=== PATIENT | male | born 1960 | race Caucasian/White ===

== ENCOUNTER 2023-06-05 09:13 | Emergency (ER) | payer OTHER ==
[~2023-06-05] VITALS: Ht 185.4 cm; Wt 95.3 kg
[2023-06-05 09:26] VITALS: BP 148/112; PULSE 62; RESP 18; TEMP 98; O2SAT 98
[2023-06-05] MEDS ORDERED: NACL 0.9% 1,000 ML IV ONE ×2 (09:50)
[2023-06-05 10:15] LABS: BLOOD GAS BASE EXCESS -1.9 mmol/L (-2.0-2.0); BLOOD GAS HCO3 20.9 mmol/L (22-26); BLOOD GAS PCO2 31.1 mmHg (35-45); BLOOD GAS PH 7.446 (7.35-7.45); BLOOD GAS PO2 83.2 mmHg (75-100)
[2023-06-05 10:16] LABS: BLOOD GAS O2 SAT% 96.7 % (92.0-98.5)
[2023-06-05 10:35] LABS: BASOPHILS % (AUTO) 0.2 % (0.0-2.0); EOSINOPHILS % (AUTO) 0.8 % (0.0-4.0); HEMATOCRIT 47.6 % (36-52); HEMOGLOBIN 16.2 g/dL (12.0-18.0); LYMPHOCYTES # (AUTO) 1.9 K/uL (2.0-11.5); LYMPHOCYTES % (AUTO) 34.3 % (20.5-51.1); MEAN CORPUSCULAR HEMOGLOBIN 30 pg (27-31); MEAN CORPUSCULAR HGB CONC 34 g/dL (33-37); MEAN CORPUSCULAR VOLUME 86.9 fL (80-94); MONOCYTES # (AUTO) 0.6 K/uL (0.8-1.0); MONOCYTES % (AUTO) 10.1 % (1.7-9.3); NEUTROPHILS # (AUTO) 3.1 K/uL (1.8-7.7); NEUTROPHILS % (AUTO) 54.6 % (42.2-75.2); PLATELET COUNT (AUTO) 204 K/uL (140-450); RED BLOOD CELL COUNT(AUTO) 5.48 MIL/uL (4.20-6.10); RED CELL DISTRIBUTION WIDTH 14.3 % (11.6-13.7); WHITE BLOOD COUNT (AUTO) 5.6 K/uL (4.8-10.8)
[2023-06-05 10:54] LABS: ALBUMIN 3.8 g/dL (3.4-5.0); ANION GAP 8.8 (8-16); CARBON DIOXIDE 29.6 mmol/L (21-32); CREATININE 1.2 mg/dL (0.6-1.3); POTASSIUM 4.4 mmol/L (3.5-5.1); TOTAL BILIRUBIN 0.6 mg/dL (0.0-1.0); TOTAL PROTEIN, SERUM 7.7 g/dL (6.4-8.2)
[2023-06-05 11:00] LABS: APPEARANCE,URINE CLEAR (CLEAR); BILIRUBIN,URINE NEGATIVE (NEGATIVE); BLOOD, URINE NEGATIVE (NEGATIVE); COLOR,URINE YELLOW (YELLOW); LEUKOCYTE ESTERASE ,URINE NEGATIVE (NEGATIVE); NITRITE, URINE NEGATIVE (NEGATIVE); PROTEIN,URINE NEGATIVE (NEGATIVE); UGLUCOSE NEGATIVE (NEGATIVE); UROBILINOGEN,URINE 0.2 EU/dL (0.2 - 1)
[2023-06-05 11:00] LABS: THYROID STIMULATING HORMONE 1.29 uIU/mL (0.34-3.74)
[2023-06-05 11:11] LABS: AMPHETAMINE, URINE NEGATIVE ng/ml (NEG <=1000); BARBITURATE, URINE NEGATIVE ng/ml (NEG <=200); BENZODIAZEPINE, URINE NEGATIVE ng/mL (NEG <=200); CANNABINOID, URINE POSITIVE ng/mL (NEG <=50); COCAINE, URINE NEGATIVE ng/mL (NEG <=300); OPIATE, URINE NEGATIVE ng/mL (NEG <=2000); PHENCYCLIDINE SCREEN,URINE NEGATIVE ng/mL (NEG <=25)
[2023-06-05 12:11] VITALS: BP 134/91; PULSE 74; RESP 16; TEMP 97.4; O2SAT 100
== END 2023-06-05 12:13 | disposition home or self-care (01) ==
LOC: MED 09:13
DX: R20.2 Paresthesia of skin (principal); R53.1 Weakness; R06.00 Dyspnea, unspecified; M54.9 Dorsalgia, unspecified; G89.29 Other chronic pain; J45.909 Unspecified asthma, uncomplicated; I10 Essential (primary) hypertension; F12.90 Cannabis use, unspecified, uncomplicated; E78.5 Hyperlipidemia, unspecified; Z98.890 Other specified postprocedural states
CPT/HCPCS: 36415; 36600; 71045; 80053; 80305; 81003; 82803; 82948; 83880; 84443; 84484; 85025; 93005; 96360; 99285; J7030